=== PATIENT | male | born 1950 | race American Indian/Alaskan Native ===

== ENCOUNTER 2018-07-26 20:23 | Emergency (ER) | payer MEDICARE ==
--- NOTE | 2018-07-26 21:09 | Emergency Department Report ---
Blank Doc - Documentation Documentation: This is a 67-year-old male that presents with SOB. Denies any chest pain. HX of asthma. This initial assessment/diagnostic orders/clinical plan/treatment(s) is/are subject to change based on patient's health status, clinical progression and re- assessment by fellow clinical providers in the ED. Further treatment and workup at subsequent clinical providers discretion. Patient/guardians urged not to elope from the ED as their condition may be serious if not clinically assessed and managed. Initial orders include: 1- Patient sent to [facility] for further evaluation and treatment 2- CXR
--- NOTE | 2018-07-26 22:13 | XRay Report ---
PROCEDURE: Chest. TECHNIQUE: PA and lateral views. HISTORY: Shortness of breath. COMPARISONS: None. FINDINGS: The heart size is normal. There is mild tortuosity of the thoracic aorta. The lungs are clear and wel l expanded. There are no pleural effusions. The soft tissues and regional skeleton are unremarkable. IMPRESSION: No evidence of acute disease. This document is electronically signed by Gil Beyer MD., Jul 26 2018 10:11:56 PM ET
--- NOTE | 2018-07-26 22:38 | Emergency Department Report ---
ED Shortness of Breath HPI - General Chief Complaint: Adult Asthma Stated Complaint: ASTHMA Time Seen by Provider: 07/26/18 22:30 Source: patient Mode of arrival: Ambulatory Limitations: No Limitations - History of Present Illness Initial Comments: Patient is a 67-year-old male presents emergency room with complaints of asthma exacerbation 2 weeks. Patient states he's been having increasing wheezing and shortness of breath. Patient states he saw his primary care 5 days ago and was given a one time shot of Solu-Medrol and given a Z-Tin for 5 days. Patient states his symptoms did improve but he's having some difficulty in breathing. Patient states his shortness of breath spell with rest and medications and albuterol. Patient states his symptoms are worse with exertion. MD Complaint: shortness of breath -: Gradual Consistency: constant Improves With: rest, bronchodilators, medication Worsens With: exertion Known History Of: asthma Context: recent URI Associated Symptoms: cough - Related Data Home Medications Medication Instructions Recorded Confirmed Last Taken Aspirin [Ecotrin] 1 tab PO DAILY 03/22/13 08/19/13 08/18/13 Carvedilol [Coreg] 1 tab PO BID 03/22/13 08/19/13 08/18/13 Lisinopril [Zestril TAB] 1 tab PO QAM 03/22/13 08/19/13 08/18/13 Previous Rx's Medication Instructions Recorded Last Taken Type Azithromycin [Zithromax] 500 mg PO QDAY #3 tablet 08/19/13 Unknown Rx Cyclobenzaprine HCl [Flexeril 5 MG 5 mg PO TID #20 tab 12/08/15 Unknown Rx TAB] Ibuprofen [Motrin 600 MG tab] 600 mg PO Q8H PRN #30 tablet 12/08/15 Unknown Rx Doxycycline Hyclate [Doxycycline 100 mg PO Q12HR 10 Days #20 tab 07/27/18 Unknown Rx Hyclate TAB] Prednisone [predniSONE 10 mg 10 mg PO .TAPER #1 tab.ds.pk 07/27/18 Unknown Rx (6-Day Pack, 21 Tabs)] Allergies Allergy/AdvReac Type Severity Reaction Status Date / Time codeine Allergy Rash Verified 03/22/13 12:59 Penicillins Allergy Rash Verified 03/22/13 12:59 ED Review of Systems ROS: Stated complaint: ASTHMA Other details as noted in HPI Constitutional: denies: chills, fever Eyes: denies: eye pain, eye discharge, vision change ENT: denies: ear pain, throat pain Respiratory: cough, shortness of breath, wheezing Cardiovascular: denies: chest pain, palpitations Endocrine: no symptoms reported Gastrointestinal: denies: abdominal pain, nausea, diarrhea Genitourinary: denies: urgency, dysuria Musculoskeletal: denies: back pain, joint swelling, arthralgia Skin: denies: rash, lesions Neurological: denies: headache, weakness, paresthesias Psychiatric: denies: anxiety, depression Hematological/Lymphatic: denies: easy bleeding, easy bruising ED Past Medical Hx - Past Medical History Previous Medical History?: Yes Hx Hypertension: Yes Hx Congestive Heart Failure: Yes Hx Asthma: Yes Additional medical history: atrial fibrillation, prostate cancer - Surgical History Past Surgical History?: Yes Additional Surgical History: PROSTATE SURGERY - Family History Family history: no significant - Social History Smoking Status: Never Smoker Substance Use Type: None - Medications Home Medications: Home Medications Medication Instructions Recorded Confirmed Last Taken Type Aspirin [Ecotrin] 1 tab PO DAILY 03/22/13 08/19/13 08/18/13 History Carvedilol [Coreg] 1 tab PO BID 03/22/13 08/19/13 08/18/13 History Lisinopril [Zestril TAB] 1 tab PO QAM 03/22/13 08/19/13 08/18/13 History Azithromycin [Zithromax] 500 mg PO QDAY #3 tablet 08/19/13 Unknown Rx Cyclobenzaprine HCl [Flexeril 5 MG 5 mg PO TID #20 tab 12/08/15 Unknown Rx TAB] Ibuprofen [Motrin 600 MG tab] 600 mg PO Q8H PRN #30 tablet 12/08/15 Unknown Rx Doxycycline Hyclate [Doxycycline 100 mg PO Q12HR 10 Days #20 tab 07/27/18 Unknown Rx Hyclate TAB] Prednisone [predniSONE 10 mg 10 mg PO .TAPER #1 tab.ds.pk 07/27/18 Unknown Rx (6-Day Pack, 21 Tabs)] ED Physical Exam - General Limitations: No Limitations General appearance: alert, in no apparent distress - Head Head exam: Present: atraumatic, normocephalic - Eye Eye exam: Present: normal appearance - ENT ENT exam: Present: mucous membranes moist - Neck Neck exam: Present: normal inspection - Respiratory Respiratory exam: Present: normal lung sounds bilaterally. Absent: respiratory distress, wheezes, rales, rhonchi, chest wall tenderness, accessory muscle use, decreased breath sounds - Cardiovascular Cardiovascular Exam: Present: regular rate, normal rhythm. Absent: systolic murmur, diastolic murmur, rubs, gallop - GI/Abdominal GI/Abdominal exam: Present: soft, normal bowel sounds. Absent: distended, tenderness, guarding, rebound - Rectal Rectal exam: Present: deferred - Extremities Exam Extremities exam: Present: normal inspection - Back Exam Back exam: Present: normal inspection - Neurological Exam Neurological exam: Present: alert, oriented X3 - Psychiatric Psychiatric exam: Present: normal affect, normal mood - Skin Skin exam: Present: warm, dry, intact, normal color. Absent: rash ED Course Vital Signs 07/26/18 07/26/18 07/26/18 21:08 23:00 23:10 Temperature 97.8 F 98.3 F Pulse Rate 98 H 99 H 94 H Respiratory 18 20 19 Rate Blood Pressure 143/79 145/95 Blood Pressure 153/76 [Left] O2 Sat by Pulse 99 97 97 Oximetry 07/27/18 00:00 Temperature Pulse Rate 87 Respiratory 21 Rate Blood Pressure 143/96 Blood Pressure [Left] O2 Sat by Pulse 97 Oximetry - Reevaluation(s) Reevaluation #1: Patient appears to be stable. Patient does not have any visible shortness of breath or respiratory distress. Patient will be given antibiotics and steroids for asthma exacerbation. Patient will be discharged home. We will do a CBC prior to discharge. 07/26/18 22:49 Discussed all results with patient. I believe that the patient's white blood cell count is elevated due to steroids. Patient will be given Doxy and a prednisone taper. Patient needs to see a tool and equipment rental clerk and his primary care. Patient given discharge instructions. Patient voiced understanding of discharge instructions. 07/27/18 00:07 ED Medical Decision Making - Lab Data Result diagrams: 07/26/18 22:55 - Radiology Data Radiology results: report reviewed, image reviewed TECHNIQUE: PA and lateral views. HISTORY: Shortness of breath. COMPARISONS: None. FINDINGS: The heart size is normal. There is mild tortuosity of the thoracic aorta. The lungs are clear and well expanded. There are no pleural effusions. The soft tissues and regional skeleton are unremarkable. IMPRESSION: No evidence of acute disease. - Medical Decision Making Patient is a 67-year-old male presents to emergency room with worsening shortness of breath and wheezing. Patient not in respiratory distress and stable in entire time in the ER. Patient states he feels good. Patient given a prescription for doxycycline and steroids. Patient stable for discharge. Patient discharged home. Patient given discharge instructions. Patient's labs unremarkable except for mildly elevated white blood cell count. Also, believed to be elevated due to steroid use. Chest x-ray is negative. Exam is unremarkable. Prior to discharge, Patient denied symptoms. - Differential Diagnosis shortness of breath. Asthma exacerbation. URI. Critical care attestation.: If time is entered above; I have spent that time in minutes in the direct care of this critically ill patient, excluding procedure time. ED Disposition Clinical Impression: SOB (shortness of breath) URI (upper respiratory infection) Qualifiers: URI type: unspecified URI Qualified Code(s): J06.9 - Acute upper respiratory infection, unspecified Asthma Qualifiers: Asthma severity: mild Asthma persistence: intermittent Asthma complication type: uncomplicated Qualified Code(s): J45.20 - Mild intermittent asthma, uncomplicated Disposition: DC- TO HOME OR SELFCARE Is pt being admited?: No Does the pt Need Aspirin: No Condition: Stable Instructions: Asthma (ED), Upper Respiratory Infection (ED) Additional Instructions: Patient to follow-up with primary care in 2-3 days. Patient to take Tylenol or ibuprofen when necessary for pain. Patient to return to ER if condition worsens. Patient to take meds as directed. Patient to increase water. Patient to rest. Patient to continue all meds. Prescriptions: Doxycycline Hyclate [Doxycycline Hyclate TAB] 100 mg PO Q12HR 10 Days #20 tab Prednisone [predniSONE 10 mg (6-Day Pack, 21 Tabs)] 10 mg PO .TAPER #1 tab.ds.pk Referrals: SURINDER ALVAREZ MD [Primary Care Provider] - 2-3 Days Time of Disposition: 00:02
[2018-07-26 23:17] LABS: Hematocrit 41.7 % (35.5-45.6); Mean Corpuscular HGB Conc 34 % (32-34); Mean Corpuscular Volume 77 fl (84-94); Platelet Count 238 K/mm3 (140-440); Red Blood Count 5.44 M/mm3 (3.65-5.03); Red Cell Distribution Width 16.8 % (13.2-15.2)
[2018-07-27 00:53] VITALS: BP 143/96
== END 2018-07-27 00:20 | disposition home or self-care (01) ==
LOC: ED 20:23
DX: J45.20 Mild intermittent asthma, uncomplicated (principal)
CPT/HCPCS: 36415; 71046; 85027

== ENCOUNTER 2019-01-04 08:46 | Day surgery (SDC) | payer MEDICARE ==
[2019-01-04] MEDS ORDERED: BENZOCAINE 20% TOP SPRAY 0.5 ML UNIT DOSE MM NR (10:00)
[2019-01-04] MEDS ORDERED: SODIUM CHLORIDE 0.9% 500 ML 500 ML IV SCH (10:00)
[2019-01-04 10:05] LABS: Hematocrit 42.8 % (35.5-45.6); Hemoglobin 14.1 gm/dl (11.8-15.2); Mean Corpuscular HGB Conc 33 % (32-34); Mean Corpuscular Volume 78 fl (84-94); Platelet Count 229 K/mm3 (140-440); Red Blood Count 5.48 M/mm3 (3.65-5.03); Red Cell Distribution Width 16.9 % (13.2-15.2)
[2019-01-04 10:24] LABS: BUN/Creatinine Ratio 10; Blood Urea Nitrogen 11 mg/dL (9-20); Calcium 9.1 mg/dL (8.4-10.2); Hemolysis Index 29
--- NOTE | 2019-01-04 10:45 | Anesthesia Day of Surgery ---
Anesthesia Day of Surgery - Day of Surgery Patient Examined: Yes Patient H&P Reviewed: Yes Patient is NPO: Yes
--- NOTE | 2019-01-04 10:48 | Anesthesia Consultation ---
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
[2019-01-04] MEDS ORDERED: PROPOFOL 200 MG/20 ML VIAL IV ONE ×2 (11:17)
[2019-01-04 11:18] LABS: INR 1.12 (0.87-1.13); Partial Thromboplastin Time 29.3 Sec. (24.2-36.6)
[2019-01-04] MEDS ORDERED: LIDOCAINE MPF (2%) 20 MG/1 ML VIAL 5 ML ONE (11:30)
[2019-01-04 14:58] VITALS: BP 122/57
--- NOTE | 2019-01-04 19:50 | Post Anesthesia Evaluation ---
- Post Anesthesia Evaluation Patient Participated: Yes Airway Patent: Yes Stable Respiratory Function: Yes Nausea/Vomiting: No Temp > 96.8F: Yes Pain Manageable: Yes Adequeate Hydration: Yes Anesthesia Complications: No Block Receding Appropriately: Not Applicable Patient on Ventilator: No
== END 2019-01-04 14:45 | disposition home or self-care (01) ==
LOC: CATHLABREC 08:46 → EDSTATUS 11:00 → CATHLABREC 14:45
PROVIDERS: ATTEND Internal Medicine Cardiovascular Disease
DX: I63.9 Cerebral infarction, unspecified (principal); I34.0 Nonrheumatic mitral (valve) insufficiency; I70.0 Atherosclerosis of aorta; I42.0 Dilated cardiomyopathy; I13.0 Hypertensive heart and chronic kidney disease with heart failure and stage 1 through stage 4 chronic kidney disease, or unspecified chronic kidney disease; N18.3 Chronic kidney disease, stage 3 (moderate); I50.22 Chronic systolic (congestive) heart failure; I49.3 Ventricular premature depolarization; J45.909 Unspecified asthma, uncomplicated; K21.9 Gastro-esophageal reflux disease without esophagitis; E78.49 Other hyperlipidemia; E66.09 Other obesity due to excess calories; Z88.0 Allergy status to penicillin; Z88.5 Allergy status to narcotic agent; Z79.82 Long term (current) use of aspirin; Z79.899 Other long term (current) drug therapy; Z68.29 Body mass index [BMI] 29.0-29.9, adult
CPT/HCPCS: 36415; 80048; 85027; 85610; 85730; 93312; 93320; 93325; J2704; J7040

== ENCOUNTER 2019-10-27 22:50 | Observation (INO) | payer MEDICARE ==
[2019-10-27] MEDS ORDERED: levETIRAcetam 1000 MG/NS 0.75% 1,000 MG/100 ML BAG IV ONE (23:06)
--- NOTE | 2019-10-27 23:10 | Emergency Department Report ---
HPI - General Time Seen by Provider: 10/27/19 23:00 - HPI HPI: Room 19 The patient is a 68-year-old male present with a chief complaint of new onset seizure. called EMS after witnessing a generalized tonic-clonic seizure. Patient has not had a history of seizures in the past but has had a history of a CVA. Patient currently denies complaints stating he feels fine ED Past Medical Hx - Past Medical History Hx Hypertension: Yes (HX CHF-pt states improved) Hx Congestive Heart Failure: Yes Hx Asthma: Yes Additional medical history: atrial fibrillation, prostate cancer - Surgical History Additional Surgical History: PROSTATE SURGERY - Family History Family history: no significant - Social History Smoking Status: Never Smoker Substance Use Type: None - Medications Home Medications: Home Medications Medication Instructions Recorded Confirmed Last Taken Type Aspirin [Ecotrin] 1 tab PO DAILY 03/22/13 01/04/19 01/03/19 History 1 tab carvediloL [Coreg] 1 tab PO BID 03/22/13 01/04/19 01/03/19 History 1 tab lisinopriL [Zestril TAB] 1 tab PO QAM 03/22/13 08/19/13 01/03/19 History 1 tab Cyclobenzaprine HCl [Flexeril 5 MG 5 mg PO TID #20 tab 12/08/15 01/04/19 Unknown Rx TAB] Ibuprofen [Motrin 600 MG tab] 600 mg PO Q8H PRN #30 tablet 12/08/15 01/04/19 Unknown Rx Doxycycline Hyclate [Doxycycline 100 mg PO Q12HR 10 Days #20 tab 07/27/18 01/04/19 Unknown Rx Hyclate TAB] ED Review of Systems ROS: Stated complaint: SEIZURE Other details as noted in HPI Constitutional: no symptoms reported Respiratory: no symptoms reported Endocrine: no symptoms reported Physical Exam - Physical Exam Physical Exam: GENERAL: The patient is well-developed well-nourished male sitting on stretcher not appearing to be in acute distress. [] HEENT: Normocephalic. Atraumatic. Extraocular motions are intact. Patient has moist mucous membranes. Small abrasion to the left anterior aspect of the tongue. NECK: Supple. Trachea midline CHEST/LUNGS: Clear to auscultation. There is no respiratory distress noted. HEART/CARDIOVASCULAR: Regular. There is no tachycardia. There is no gallop rub or murmur. ABDOMEN: Abdomen is soft, nontender. Patient has normal bowel sounds. There is no abdominal distention. SKIN: There is no rash. There is no edema. There is no diaphoresis. NEURO: The patient is awake and alert. The patient is cooperative. Cranial nerves II through XII grossly intact. The patient has normal speech. GCS 15. Moves all extremities well. Patient able to hold either leg at 30 degrees for 5 count. NIHSS= 0 MUSCULOSKELETAL: There is no evidence of acute injury. ED Medical Decision Making - Lab Data Result diagrams: 10/27/19 23:09 10/27/19 23:09 Laboratory Tests 10/27/19 10/27/19 23:09 23:09 WBC 7.5 RBC 4.92 Hgb 13.1 Hct 39.5 MCV 80 L MCH 27 L MCHC 33 RDW 15.7 H Plt Count 247 Lymph % (Auto) 42.7 H Wayne % (Auto) 8.7 H Eos % (Auto) 3.5 Baso % (Auto) 1.3 Lymph # 3.2 Wayne # 0.7 Eos # 0.3 Baso # 0.1 Seg Neutrophils % 43.8 Seg Neutrophils # 3.3 Sodium 139 Potassium 4.7 Chloride 102.2 Carbon Dioxide 18 L Anion Gap 24 BUN 14 Creatinine 1.7 H Estimated GFR 48 BUN/Creatinine Ratio 8 Glucose 187 H Calcium 9.4 Magnesium 2.20 - EKG Data -: EKG Interpreted by [place] EKG shows normal: sinus rhythm Rate: normal - EKG Data When compared to previous EKG there are: previous EKG unavailable Interpretation: nonspecific ST-T wave jeanie - Radiology Data Radiology results: report reviewed (CT head), image reviewed (CT head) Findings [address] [address] Cat Scan Report Signed Patient: MAYNOR PRUITT JR MR#: [id number] 28 : 1950 Acct:[id number] Age/Sex: 68 / M ADM Date: 10/27/19 Loc: ED Attending Dr: Ordering Physician: ANA GIBSON MD Date of Service: 10/27/19 Procedure(s): CT h ead/brain wo con Accession Number(s): [id number] cc: ANA GIBSON MD CT head/brain wo con INDICATION / CLINICAL INFORMATION: 68 years Male; New onset seizure. TECHNIQUE: Routine CT head without contrast. All CT scans at this location are performed using CT dose reduction for ALARA by means of automated exposure control. COMPARISON: 08/22/2011 FINDINGS: BRAIN / INTRACRANIAL CONTENTS: Loss of romano/white differentiation is seen in the left parietal temporal region - subacute, moderately sized branch MCA infarct suspected. No signs of hemorrhagic transformation. Encephalomalacia seen in the inferior frontal gyral region on the left, as well as in the adjacent gangliocapsular region, laterally. [place] MCA infarct suspected. Otherwise, no acute hemorrhage, mass effect, midline shift, hydrocephalus, or acute, large territorial infarct. No significant atrophy. There are moderate to extensive, confluent areas of decreased attenuation in the white matter of the cerebral hemispheres, as well as the gangliocapsular regions. These are nonspecific findings and may be related to microangiopathy (hypertension, diabetes, atherosclerosis), given the patient's age. CRANIOCERVICAL JUNCTION: No significant abnormality. ORBITS: No significant abnormality of visualized orbits. SINUSES / MASTOIDS: No significant abnormality in the visualized paranasal sinuses or mastoid air cells. ADDITIONAL FINDINGS: Atherosclerotic disease is seen in the anterior circulation. IMPRESSION: 1. Subacute ischemic changes suggested in the left parietal temporal region. No signs of hemorrhagic transformation. Signer Name: Juan A Salmon MD, III Signed: 10/28/2019 12:05 AM Workstation Name: [id number] Transcribed By: HR Dictated By: Juan A Salmon MD Electronically Authenticated By: Juan A Salmon MD Signed Date/Time: 10/28/19 0005 DD/ 0001 TD/TT: - Differential Diagnosis New onset seizures, ICH, encephalomalacia, electrolyte imbalance Critical care attestation.: If time is entered above; I have spent that time in minutes in the direct care of this critically ill patient, excluding procedure time. ED Disposition Clinical Impression: Seizure, CVA (cerebral vascular accident) Disposition: - OP ADMIT IP TO THIS HOSP Is pt being admited?: Yes Does the pt Need Aspirin: Yes Condition: Fair Time of Disposition: 02:20 (Hospitalist paged (Dr Pineda))
[2019-10-27 23:42] LABS: Basophils # (Auto) 0.1 K/mm3 (0.0-0.1); Basophils % (Auto) 1.3 % (0.0-1.8); Eosinophils # (Auto) 0.3 K/mm3 (0.0-0.4); Eosinophils % (Auto) 3.5 % (0.0-4.3); Hematocrit 39.5 % (35.5-45.6); Hemoglobin 13.1 gm/dl (11.8-15.2); Lymphocytes # (Auto) 3.2 K/mm3 (1.2-5.4); Lymphocytes % (Auto) 42.7 % (13.4-35.0); Mean Corpuscular HGB Conc 33 % (32-34); Mean Corpuscular Volume 80 fl (84-94); Monocytes # (Auto) 0.7 K/mm3 (0.0-0.8); Monocytes % (Auto) 8.7 % (0.0-7.3); Platelet Count 247 K/mm3 (140-440); Red Blood Count 4.92 M/mm3 (3.65-5.03); Red Cell Distribution Width 15.7 % (13.2-15.2)
[2019-10-28 00:02] LABS: Calcium 9.4 mg/dL (8.4-10.2)
--- NOTE | 2019-10-28 00:10 | Cat Scan Report ---
CT head/brain wo con INDICATION / CLINICAL INFORMATION: 68 years Male; New onset seizure. TECHNIQUE: Routine CT head without contrast. All CT scans at this location are performed using CT dos e reduction for ALARA by means of automated exposure control. COMPARISON: 08/22/2011 FINDINGS: BRAIN / INTRACRANIAL CONTENTS: Loss of romano/white differentiation is seen in the left parietal tempor al region - subacute, moderately sized branch MCA infarct suspected. No signs of hemorrhagic transfor mation. Encephalomalacia seen in the inferior frontal gyral region on the left, as well as in the adjacent ga ngliocapsular region, laterally. Old branch MCA infarct suspected. Otherwise, no acute hemorrhage, mass effect, midline shift, hydrocephalus, or acute, large territori al infarct. No significant atrophy. There are moderate to extensive, confluent areas of decreased attenuation in the white matter of the cerebral hemispheres, as well as the gangliocapsular regions. These are nonspecific findings and may be related to microangiopathy (hypertension, diabetes, atherosclerosis), given the patient's age. CRANIOCERVICAL JUNCTION: No significant abnormality. ORBITS: No significant abnormality of visualized orbits. SINUSES / MASTOIDS: No significant abnormality in the visualized paranasal sinuses or mastoid air юлия ls. ADDITIONAL FINDINGS: Atherosclerotic disease is seen in the anterior circulation. IMPRESSION: 1. Subacute ischemic changes suggested in the left parietal temporal region. No signs of hemorrhagic transformation. Signer Name: Juan A Salmon MD, III Signed: 10/28/2019 12:05 AM Workstation Name: [id number]
[2019-10-28] MEDS ORDERED: ASPIRIN 325 MG TAB PO ONE (00:16)
[2019-10-28] MEDS ORDERED: LORazepam 2 MG/ML VIAL IV PRN (06:18)
[2019-10-28] MEDS ORDERED: ONDANSETRON 4 MG/2 ML INJ IV PRN (06:19)
--- NOTE | 2019-10-28 07:43 | History and Physical Report ---
History of Present Illness Date of examination: 10/28/19 Date of admission: 10/28/19 04:55 Chief complaint: seizure attack History of present illness: patient is a 68 year old male presenting with history of seizure attack characterized by tonic /clonic movement and witnesed by the . there was no history of fever or chills, No history of chest pain or shortness of breath and no history of any antecedent mental change before the seizure attack. Past History Past Medical History: atrial fib, heart failure, hypertension, hypothyroidism, stroke Past Surgical History: Other (PROSTATE CANCER) Social history: no significant social history Family history: no significant family history Medications and Allergies Allergies Allergy/AdvReac Type Severity Reaction Status Date / Time codeine Allergy Rash Verified 03/22/13 12:59 Penicillins Allergy Rash Verified 03/22/13 12:59 Home Medications Medication Instructions Recorded Confirmed Last Taken Type Aspirin [Ecotrin] 1 tab PO DAILY 03/22/13 01/04/19 01/03/19 History 1 tab carvediloL [Coreg] 1 tab PO BID 03/22/13 01/04/19 01/03/19 History 1 tab lisinopriL [Zestril TAB] 1 tab PO QAM 03/22/13 08/19/13 01/03/19 History 1 tab Cyclobenzaprine HCl [Flexeril 5 MG 5 mg PO TID #20 tab 12/08/15 01/04/19 Unknown Rx TAB] Ibuprofen [Motrin 600 MG tab] 600 mg PO Q8H PRN #30 tablet 12/08/15 01/04/19 Unknown Rx Doxycycline Hyclate [Doxycycline 100 mg PO Q12HR 10 Days #20 tab 07/27/18 01/04/19 Unknown Rx Hyclate TAB] Active Meds: Active Medications Aspirin (Aspirin) 325 mg PO QDAY CARITO Carvedilol (Coreg) 25 mg PO BID CARITO Cyclobenzaprine HCl (Flexeril) 5 mg PO TID CARITO Levetiracetam (Keppra) 750 mg PO BID CARITO Lisinopril (Zestril) 40 mg PO QAM CARITO Lorazepam (Ativan) 1 mg IV Q4H PRN PRN Reason: Seizures Ondansetron HCl (Zofran) 4 mg IV Q8H PRN PRN Reason: Nausea And Vomiting Pravastatin Sodium (Pravachol) 40 mg PO QHS [facility] Review of Systems Constitutional: weakness, no weight loss, no weight gain, no fever, no chills Eyes: bilateral: other (NO BILATERAL EYE SYMPTOM) Ears, nose, mouth and throat: no ear pain, no nasal congestion, no nasal discharge, no mouth pain, no dysphagia, no hoarseness, no sore throat, no swelling in mouth, no headache, no vertigo Cardiovascular: no chest pain, no syncope, no lightheadedness, no shortness of breath, no high blood pressure Respiratory: no cough, no excessive sputum, no shortness of breath, no dyspnea on exertion Gastrointestinal: no abdominal pain, no nausea, no vomiting, no constipation, no melena, no loss of appetite, no early satiety, no heartburn, no indigestion Genitourinary Male: no hematuria, no flank pain, no discharge, no incontinence Rectal: no pain, no itching Musculoskeletal: no neck pain, no low back pain, no shooting leg pain, no leg numbness/tingling, no morning stiffness, no muscle weakness, no muscle cramps, no myalgias Integumentary: no rash, no pruritis, no redness, no sores, no wounds, no jaundice, no boils, no lesions, no darkening of skin, no acne, no dryness, no striae, no hirsutism Neurological: seizures, convulsions, no paralysis, no weakness, no parathesias, no numbness, no tingling, no syncope, no tremors, no ataxia, no aphasia, no change in speech, no change in mentation, no confusion Psychiatric: no anxiety, no sleep disturbances, no hypersomnia, no change in appetite, no change in libido, no suicidal ideation, no anxiety attacks Endocrine: no excessive thirst, no polydipsia, no polyuria, no nocturia, no flushing, no palpatations Hematologic/Lymphatic: no easy bruising, no easy bleeding Exam - Constitutional Vitals: Temp Pulse Resp BP Pulse Ox 98.1 F 76 12 122/80 99 10/27/19 23:14 10/28/19 04:45 10/28/19 06:00 10/28/19 06:00 10/28/19 06:00 General appearance: Present: no acute distress - EENT Eyes: Present: PERRL, EOM intact ENT: hearing intact, clear oral mucosa, dentition normal - Neck Neck: Present: supple, normal ROM - Respiratory Respiratory effort: normal - Cardiovascular Rhythm: regular Heart Sounds: Present: S1 & S2. Absent: gallop, systolic murmur, diastolic murmur - Extremities Extremities: no ischemia, No edema Peripheral Pulses: within normal limits - Abdominal General gastrointestinal: Present: soft, non-tender, non-distended. Absent: tender, distended, rigid, hepatomegaly, splenomegaly Male genitourinary: Present: deferred - Rectal Rectal Exam: deferred - Integumentary Integumentary: Present: clear, warm, dry. Absent: jaundice - Musculoskeletal Musculoskeletal: strength equal bilaterally - Psychiatric Psychiatric: appropriate mood/affect HEART Score - HEART Score Age: > 65 Risk factors: > 3 risk factors or hx of atherosclerotic disease - Critical Actions Critical Actions: 4-6 pts:12-16.6% risk of adverse cardiac event. Should be admitted Results - Labs CBC & Chem 7: 10/27/19 23:09 10/27/19 23:09 Labs: Laboratory Last Values WBC 7.5 K/mm3 (4.5-11.0) 10/27/19 23:09 RBC 4.92 M/mm3 (3.65-5.03) 10/27/19 23:09 Hgb 13.1 gm/dl (11.8-15.2) 10/27/19 23:09 Hct 39.5 % (35.5-45.6) 10/27/19 23:09 MCV 80 fl (84-94) L 10/27/19 23:09 MCH 27 pg (28-32) L 10/27/19 23:09 MCHC 33 % (32-34) 10/27/19 23:09 RDW 15.7 % (13.2-15.2) H 10/27/19 23:09 Plt Count 247 K/mm3 (140-440) 10/27/19 23:09 Lymph % (Auto) 42.7 % (13.4-35.0) H 10/27/19 23:09 [place] % (Auto) 8.7 % (0.0-7.3) H 10/27/19 23:09 Eos % (Auto) 3.5 % (0.0-4.3) 10/27/19 23:09 Baso % (Auto) 1.3 % (0.0-1.8) 10/27/19 23:09 Lymph # 3.2 K/mm3 (1.2-5.4) 10/27/19 23:09 [place] # 0.7 K/mm3 (0.0-0.8) 10/27/19 23:09 Eos # 0.3 K/mm3 (0.0-0.4) 10/27/19 23:09 Baso # 0.1 K/mm3 (0.0-0.1) 10/27/19 23:09 Seg Neutrophils % 43.8 % (40.0-70.0) 10/27/19 23:09 Seg Neutrophils # 3.3 K/mm3 (1.8-7.7) 10/27/19 23:09 Sodium 139 mmol/L (137-145) 10/27/19 23:09 Potassium 4.7 mmol/L (3.6-5.0) 10/27/19 23:09 Chloride 102.2 mmol/L (98-107) 10/27/19 23:09 Carbon Dioxide 18 mmol/L (22-30) L 10/27/19 23:09 Anion Gap 24 mmol/L 10/27/19 23:09 BUN 14 mg/dL (9-20) 10/27/19 23:09 Creatinine 1.7 mg/dL (0.8-1.3) H 10/27/19 23:09 Estimated GFR 48 ml/min 10/27/19 23:09 BUN/Creatinine Ratio 8 % 10/27/19 23:09 Glucose 187 mg/dL (75-100) H 10/27/19 23:09 Calcium 9.4 mg/dL (8.4-10.2) 10/27/19 23:09 Magnesium 2.20 mg/dL (1.7-2.3) 10/27/19 23:09 Assessment and Plan - Patient Problems (1) LUANNE (acute kidney injury) Current Visit: Yes Status: Acute Plan to address problem: 1. I.V FLUID 2. NEPHROLOGY CONSULT (2) CVA (cerebral vascular accident) Current Visit: Yes Status: Acute Plan to address problem: 1. OBSERVATION 2. MRI BRAIN WITHOUT CONTRAST 3. CAROTID DOPPLER 4. 2 D ECHOCARDIOGRAM 5. NEUROLOGY CONSULT 6. NPO AND SPEECH THERAPY CONSULT 7. PO PRAVASTATIN 8 PO ASPIRIN (3) Seizure Current Visit: Yes Status: Acute Plan to address problem: 1. NEUROLOGY CONSULT 2. I.V ATIVAN PRN SEIZURES 3. PO KEPPRA
[2019-10-28] MEDS ORDERED: CYCLOBENZAPRINE 10 MG TAB PO SCH (08:00)
[2019-10-28] MEDS ORDERED: NON-FORMULARY EACH (Cyclobenzaprine Hcl [Flexeril 5 Mg Tab] 5 MG) PO SCH (08:00)
[2019-10-28] MEDS ORDERED: SODIUM CHLORIDE 0.9% 1000 ML 1,000 ML IV SCH (08:15)
--- NOTE | 2019-10-28 09:02 | Consultation ---
History of Present Illness - Reason for Consult Consult date: 10/28/19 acute renal failure - History of Present Illness Mr. 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 She reports that yesterday, patient was in usual state of health. However, she states that last night, she witnessed seizure activity - described generalized tonic-clonic seizure. EMS was called and patient was transported to the ED. reports that patient was recently admitted to [place] on September 06 for similar history. reports that he was hospitalized for 2-3 days. Work up was reportedly unremarkable. He was discharged to home on anti epileptic medications Past History Past Medical History: atrial fib, heart failure, hypertension, hypothyroidism, stroke Past Surgical History: Other (PROSTATE CANCER) Social history: no significant social history Family history: no significant family history Medications and Allergies Allergies Allergy/AdvReac Type Severity Reaction Status Date / Time codeine Allergy Rash Verified 03/22/13 12:59 Penicillins Allergy Rash Verified 03/22/13 12:59 Home Medications Medication Instructions Recorded Confirmed Last Taken Type Aspirin [Ecotrin] 1 tab PO DAILY 03/22/13 01/04/19 01/03/19 History 1 tab carvediloL [Coreg] 1 tab PO BID 03/22/13 01/04/19 01/03/19 History 1 tab lisinopriL [Zestril TAB] 1 tab PO QAM 03/22/13 08/19/13 01/03/19 History 1 tab Cyclobenzaprine HCl [Flexeril 5 MG 5 mg PO TID #20 tab 12/08/15 01/04/19 Unknown Rx TAB] Ibuprofen [Motrin 600 MG tab] 600 mg PO Q8H PRN #30 tablet 12/08/15 01/04/19 Unknown Rx Doxycycline Hyclate [Doxycycline 100 mg PO Q12HR 10 Days #20 tab 07/27/1801/04 Unknown Rx Hyclate TAB] Active Meds: Active Medications Aspirin (Aspirin) 325 mg PO QDAY CARITO Carvedilol (Coreg) 25 mg PO BID CARITO Cyclobenzaprine HCl (Flexeril) 5 mg PO TID CARITO Sodium Chloride (Nacl 0.9% 1000 Ml) 1,000 mls @ 75 mls/hr IV DIRECT CARITO Levetiracetam (Keppra) 750 mg PO BID CARITO Lorazepam (Ativan) 1 mg IV Q4H PRN PRN Reason: Seizures Ondansetron HCl (Zofran) 4 mg IV Q8H PRN PRN Reason: Nausea And Vomiting Pravastatin Sodium (Pravachol) 40 mg PO QHS CARITO Review of Systems All systems: negative Neurological: other (expressive aphasia) Exam - Vital Signs Vital signs: Vital Signs Pulse Resp 105 H 19 10/27/19 23:08 10/27/19 23:08 - General Appearance General appearance: well-developed, well-nourished EENT: ATNC Respiratory: Clear to Ascultation Heart: regular, S1S2 Gastrointestinal: Present: normal. Absent: tenderness, distended Integumentary: no rash, warm and dry Neurologic: other (expressive aphasia - answers "[place]" to majority of questions) Psychiatric: mood/affect appropriate, cooperative Results - Lab Results 10/27/19 23:09 10/27/19 23:09 Most recent lab results Calcium 9.4 mg/dL (8.4-10.2) 10/27/19 23:09 Magnesium 2.20 mg/dL (1.7-2.3) 10/27/19 23:09 Assessment and Plan Impression: * Nonoliguric LUANNE secondary to unclear etiology - consider prerenal azotemia vs ATN related to rhabdo vs NSAID induced nephopathy * Seizure disorder * CVA with expressive aphasia * Hypertension * Atrial fibrillation * Metabolic acidosis Plan: * No acute indication for renal replacement therapy at this time * Continue gentle IVF * Will order CK * Hold ACEi for now * Obtain urine studies - UA, urine lytes, urine eos * Obtain renal ultrasound to r/o obstructive uropathy * Avoid potential nephrotoxins * Dose medications for renal function * Plan of care discussed with patient's via phone
[2019-10-28] MEDS ORDERED: LISINOPRIL 40 MG TAB PO SCH (10:00)
[2019-10-28] MEDS: carvediloL 25 MG TAB PO SCH ×2 (10:21→22:08)
[2019-10-28] MEDS: ASPIRIN 325 MG TAB PO SCH (10:21)
[2019-10-28] MEDS: levETIRAcetam 500 MG/5 ML ORAL LIQD PO SCH ×2 (10:21→22:08)
--- NOTE | 2019-10-28 19:49 | Ultrasound Report ---
ULTRASOUND RENAL INDICATION: LUANNE. COMPARISON: No relevant prior imaging study available. FINDINGS: RIGHT KIDNEY: Size: 11.5 cm. Echogenicity: Normal. Cortical thickness: Normal. Stones: None. Hydronephrosis: None. Cyst or mass: There is a 4 mm hyperechoic structure in the right upper pole. This may represent some parenchymal calcification or could represent a tiny angiomyolipoma. There is a 9 mm cyst in the upper pole. LEFT KIDNEY: Size: 11.3 cm. Echogenicity: Normal. Cortical thickness: Normal. Stones: None. Hydronephrosis: None. Cyst or mass: There is a 5 mm echogenic structure in the mid left kidney. This could represent calcif ication possibly representing a small stone. This may represent small angiomyolipoma.. Urinary Bladder: No significant abnormality. Free Fluid: None. Additional Findings: None. IMPRESSION 1. No acute sonographic abnormality of the kidneys. Signer Name: Deandre Tom MD Signed: 10/28/2019 7:44 PM Workstation Name: [id number]
[2019-10-28] MEDS: PRAVASTATIN 40 MG TAB PO SCH (22:08)
[2019-10-29 06:03] LABS: BUN/Creatinine Ratio 10; Blood Urea Nitrogen 12 mg/dL (9-20); Hemolysis Index 22
[2019-10-29 09:28] LABS: Bilirubin,Urine NEG (Negative); Blood,Urine SM (Negative); Color,Urine Yellow (Yellow); Mucus,Urine FEW /HPF; Protein,Urine <15 mg/dL mg/dL (Negative); Urobilinogen,Urine < 2.0 mg/dL (<2.0)
[2019-10-29 09:30] LABS: Creatinine,Urine 193.5 mg/dL (0.1-20.0)
[2019-10-29] MEDS: carvediloL 25 MG TAB PO SCH (09:45)
[2019-10-29] MEDS: ASPIRIN 325 MG TAB PO SCH (09:45)
[2019-10-29] MEDS: levETIRAcetam 500 MG/5 ML ORAL LIQD PO SCH ×2 (09:45→22:11)
--- NOTE | 2019-10-29 10:06 | Progress Note ---
Assessment and Plan Impression: * Nonoliguric LUANNE secondary prerenal azotemia vs ATN related to rhabdo vs NSAID induced nephopathy * Seizure disorder * CVA with expressive aphasia * Hypertension * Atrial fibrillation * Metabolic acidosis Plan: * No acute indication for renal replacement therapy at this time * Creatinine has improved to 1.2 from 1.7, lytes and urine stable * Reviewed urine studies * Continue gentle IVF as tolerated, wean if able to tolerate PO intake * CK mildly elevated, less likely rhabdo-associated LUANNE * Contineu to hold ACEi for now * Reviewed renal ultrasound to r/o obstructive uropathy * Avoid potential nephrotoxins * Dose medications for renal function * Will discuss plan of care with patient's via phone prn Subjective Date of service: 10/29/19 Interval history: No major issues noted, patient in good spirits this AM Objective - Exam Narrative Exam: General appearance: well-developed, well-nourished EENT: ATNC Respiratory: Clear to Ascultation Heart: regular, S1S2 Gastrointestinal: Present: normal. Absent: tenderness, distended Integumentary: no rash, warm and dry Neurologic: expressive aphasia noted- answers "[place]" to majority of questions, moves spontaneously, comprehends basic commands Psychiatric: mood/affect appropriate, cooperative - Vital Signs Vital signs: Vital Signs - 12hr 10/28/19 10/28/19 10/29/19 22:08 23:06 02:00 Temperature 98.4 F Pulse Rate 74 73 62 Respiratory 18 Rate Blood Pressure 132/84 150/79 O2 Sat by Pulse 98 Oximetry 10/29/19 10/29/19 10/29/19 04:12 07:59 09:45 Temperature 97.5 F L 98.5 F Pulse Rate 76 71 76 Respiratory 16 20 Rate Blood Pressure 131/87 138/87 128/77 O2 Sat by Pulse 100 99 Oximetry - Lab 10/27/19 23:09 10/29/19 05:09 Most recent lab results Calcium 9.0 mg/dL (8.4-10.2) 10/29/19 05:09 Magnesium 2.20 mg/dL (1.7-2.3) 10/27/19 23:09 Urine Creatinine 193.5 mg/dL (0.1-20.0) H 10/29/19 09:12 Urine Sodium 116 mmol/L 10/29/19 09:12 Medications & Allergies - Medications Allergies/Adverse Reactions: Allergies codeine Allergy (Verified 03/22/13 12:59) Rash Penicillins Allergy (Verified 03/22/13 12:59) Rash Home Medications: Home Medications Medication Instructions Recorded Confirmed Last Taken Type Aspirin [Ecotrin] 1 tab PO DAILY 03/22/13 01/04/19 01/03/19 History 1 tab carvediloL [Coreg] 1 tab PO BID 03/22/13 01/04/19 01/03/19 History 1 tab lisinopriL [Zestril TAB] 1 tab PO QAM 03/22/13 08/19/13 01/03/19 History 1 tab Cyclobenzaprine HCl [Flexeril 5 MG 5 mg PO TID #20 tab 12/08/15 01/04/19 Unknown Rx TAB] Ibuprofen [Motrin 600 MG tab] 600 mg PO Q8H PRN #30 tablet 12/08/15 01/04/19 Unknown Rx Doxycycline Hyclate [Doxycycline 100 mg PO Q12HR 10 Days #20 tab 07/27/18 01/04/19 Unknown Rx Hyclate TAB] Active Medications: Generic Name Dose Route Start Last Admin Trade Name Freq PRN Reason Stop Dose Admin Aspirin 325 mg 10/28/19 10:00 10/29/19 09:45 Aspirin PO 325 mg QDAY CARITO Administration Carvedilol 25 mg 10/28/19 10:00 10/29/19 09:45 Coreg PO 25 mg BID CARITO Administration Sodium Chloride 1,000 mls @ 75 mls/hr 10/28/19 08:15 Nacl 0.9% 1000 Ml IV DIRECT CARITO Levetiracetam 750 mg 10/28/19 10:00 10/29/19 09:45 Keppra PO 750 mg BID CARITO Administration Lorazepam 1 mg 10/28/19 06:18 Ativan IV Q4H PRN Seizures Ondansetron HCl 4 mg 10/28/19 06:19 Zofran IV Q8H PRN Nausea And Vomiting Pravastatin Sodium 40 mg 10/28/19 22:00 10/28/19 22:08 Pravachol PO 40 mg QHS CARITO Administration
--- NOTE | 2019-10-29 17:14 | Progress Note ---
Assessment and Plan Assessment and plan: 68 year old male with a history of CVA (2019), seizure disorder characterized by tonic clonic movement and witnessed by the . There was no history of fever or chills. No history of chest pain or shortness of breath and no history of any antecedent mental change before the seizure attack. 10/28. Patient seen and examined at bedside this morning. Patient is occasionally dysphasic. Neurology evaluation still awaited. Echocardiogram shows severely low EF. I discussed with -Melissa on [phone] at 5:30pm. As per spouse, his home medications as follows -lisinopril 40 mg daily, aspirin 325 mg daily, Coreg 6.25 mg twice a day, Aldactone 25 mg daily, Lipitor 40 mg daily, Keppra 1000 mg twice daily, Lasix 20 mg daily. - Patient Problems (1) CVA (cerebral vascular accident) Current Visit: Yes Status: Acute Plan to address problem: CT head performed in the ER showed left sided parieto-temporal lobe infarct. Patient is on aspirin 325 mg daily at home. May need to add plavix 75mg daily - will defer to neurologist. TTE performed showed no PFO, shunt or thrombus Ultrasound Doppler carotids-results pending Needs speech and swallow evaluation and PT/OT Neurology on board. (2) Seizure Current Visit: Yes Status: Acute Plan to address problem: Patient is on Keppra 1000 mg twice daily at home. Neurology on board EEG pending May need MRI brain w wo contrast. (3) Hypertension Current Visit: Yes Status: Acute Plan to address problem: Maintain permissive hypertension for now (4) Chronic systolic heart failure Current Visit: Yes Status: Acute Plan to address problem: Echocardiogram showed EF 15 to 20% at best. Patient is on ALICIA inhibitor, Coreg, Aldactone and furosemide at home. Resume Aldactone and Coreg for now. Hold ALICIA inhibitor and Lasix today. Resume tomorrow if renal function stable Follow-up with [facility] radio operator in the office (5) DVT prophylaxis Current Visit: Yes Status: Acute Plan to address problem: Lovenox daily. History Interval history: See assessment and plan Hospitalist Physical - Constitutional Vitals: Temp Pulse Resp BP Pulse Ox 98.4 F 63 18 144/91 100 10/29/19 15:53 10/29/19 15:53 10/29/19 15:53 10/29/19 15:53 10/29/19 15:53 General appearance: Present: no acute distress - EENT Eyes: Present: PERRL - Neck Neck: Present: supple, normal ROM - Respiratory Respiratory: bilateral: CTA - Cardiovascular Rhythm: regular Heart Sounds: Present: S1 & S2 - Extremities Extremities: No edema - Abdominal General gastrointestinal: soft, non-tender, non-distended, normal bowel sounds - Psychiatric Psychiatric: appropriate mood/affect - Neurologic Neurologic: other (Slight dysphasia. Not gross focal motor or sensory deficits on exam) HEART Score - HEART Score Age: > 65 Risk factors: > 3 risk factors or hx of atherosclerotic disease - Critical Actions Critical Actions: 4-6 pts:12-16.6% risk of adverse cardiac event. Should be admitted Results - Labs CBC & Chem 7: 10/27/19 23:09 10/29/19 05:09 Labs: Laboratory Last Values WBC 7.5 K/mm3 (4.5-11.0) 10/27/19 23:09 RBC 4.92 M/mm3 (3.65-5.03) 10/27/19 23:09 Hgb 13.1 gm/dl (11.8-15.2) 10/27/19 23:09 Hct 39.5 % (35.5-45.6) 10/27/19 23:09 MCV 80 fl (84-94) L 10/27/19 23:09 MCH 27 pg (28-32) L 10/27/19 23:09 MCHC 33 % (32-34) 10/27/19 23:09 RDW 15.7 % (13.2-15.2) H 10/27/19 23:09 Plt Count 247 K/mm3 (140-440) 10/27/19 23:09 Lymph % (Auto) 42.7 % (13.4-35.0) H 10/27/19 23:09 [place] % (Auto) 8.7 % (0.0-7.3) H 10/27/19 23:09 Eos % (Auto) 3.5 % (0.0-4.3) 10/27/19 23:09 Baso % (Auto) 1.3 % (0.0-1.8) 10/27/19 23:09 Lymph # 3.2 K/mm3 (1.2-5.4) 10/27/19 23:09 [place] # 0.7 K/mm3 (0.0-0.8) 10/27/19 23:09 Eos # 0.3 K/mm3 (0.0-0.4) 10/27/19 23:09 Baso # 0.1 K/mm3 (0.0-0.1) 10/27/19 23:09 Seg Neutrophils % 43.8 % (40.0-70.0) 10/27/19 23:09 Seg Neutrophils # 3.3 K/mm3 (1.8-7.7) 10/27/19 23:09 Sodium 140 mmol/L (137-145) 10/29/19 05:09 Potassium 4.8 mmol/L (3.6-5.0) 10/29/19 05:09 Chloride 108.3 mmol/L (98-107) H 10/29/19 05:09 Carbon Dioxide 23 mmol/L (22-30) 10/29/19 05:09 Anion Gap 14 mmol/L 10/29/19 05:09 BUN 12 mg/dL (9-20) 10/29/19 05:09 Creatinine 1.2 mg/dL (0.8-1.3) 10/29/19 05:09 Estimated GFR > 60 ml/min 10/29/19 05:09 BUN/Creatinine Ratio 10 % 10/29/19 05:09 Glucose 92 mg/dL (75-100) 10/29/19 05:09 Calcium 9.0 mg/dL (8.4-10.2) 10/29/19 05:09 Magnesium 2.20 mg/dL (1.7-2.3) 10/27/19 23:09 Total Creatine Kinase 1105 units/L (55-170) H 10/29/19 05:09 Urine Color Yellow (Yellow) 10/29/19 09:12 Urine Turbidity Clear (Clear) 10/29/19 09:12 Urine pH 5.0 (5.0-7.0) 10/29/19 09:12 Ur Specific [place] 1.015 (1.003-1.030) 10/29/19 09:12 Urine Protein <15 mg/dl mg/dL (Negative) 10/29/19 09:12 Urine Glucose (UA) Neg mg/dL (Negative) 10/29/19 09:12 Urine Ketones Neg mg/dL (Negative) 10/29/19 09:12 Urine Blood Sm (Negative) 10/29/19 09:12 Urine Nitrite Neg (Negative) 10/29/19 09:12 Urine Bilirubin Neg (Negative) 10/29/19 09:12 Urine Urobilinogen < 2.0 mg/dL (<2.0) 10/29/19 09:12 Ur Leukocyte Esterase Neg (Negative) 10/29/19 09:12 Urine WBC (Auto) 2.0 /HPF (0.0-6.0) 10/29/19 09:12 Urine RBC (Auto) 3.0 /HPF (0.0-6.0) 10/29/19 09:12 U Epithel Cells (Auto) < 1.0 /HPF (0-13.0) 10/29/19 09:12 Urine Mucus Few /HPF 10/29/19 09:12 Urine Eosinophils None seen (None Seen) 10/29/19 09:12 Urine Creatinine 193.5 mg/dL (0.1-20.0) H 10/29/19 09:12 Urine Sodium 116 mmol/L 10/29/19 09:12 - Diagnostic Impressions Diagnostic Impressions: Echocardiogram 10/28/19 06:13 Transthoracic Echocardiogram Indication: CVA BP: 122/80 HR: 72 Conclusions *The left ventricular chamber size is severely dilated. *Global left ventricular systolic function is severely decreased. *The estimated ejection fraction is less than 15-20%. *Mild concentric left ventricular hypertrophy is observed. *There is mild to moderate mitral regurgitation. *There is trace of aortic regurgitation. *There is trace tricuspid regurgitation. *A patent foramen ovale is not demonstrated by agitated saline contrast. Findings Left Ventricle: The left ventricular chamber size is severely dilated. Mild concentric left ventricular hypertrophy is observed. Global left ventricular systolic function is severely decreased. The estimated ejection fraction is 15-20%. Left Atrium: The left atrium is mild to moderately dilated. Right Ventricle: The right ventricular cavity size is normal. Right Atrium: The right atrial cavity size is normal. A patent foramen ovale is not demonstrated by agitated saline contrast. Aortic Valve: The aortic valve is trileaflet. The aortic valve leaflets are mildly thickened. There is trace of aortic regurgitation. There is no evidence of aortic stenosis. Mitral Valve: The mitral valve leaflets are mildly thickened. There is mild to moderate mitral regurgitation. There is no evidence of mitral stenosis. Tricuspid Valve: There is trace tricuspid regurgitation. No pulmonary hypertension is noted. Pulmonic Valve: There is trace pulmonic regurgitation. Pericardium: There is no pericardial effusion. Aorta: There is no dilatation of the aortic root. Venous: The inferior vena cava appears normal in size. Contrast: Intravenous agitated saline contrast was used to assess intracardiac shunting. Measurements Chambers 2D Name Value Normal Range IVSd (2D) 1.09 cm (0.6 - 1.1) LVPWd (2D) 1.1 cm (0.6 - 1.1) LVIDd (2D) 7.04 cm (3.7 - 5.6) LVIDs (2D) 6.36 cm (2 - 3.8) LV FS (2D) 9.72 % - EF Teichholz (2D) 20.67 % - Ao root diameter (2D) 2.8 cm (2 - 3.7) Volumes/Mass Name Value Normal Range LA ESV SP 4CH (A/L) 76.66 ml - LA ESV SP 2CH (A/L) 93.24 ml - LA ESV BP (A/L) 86.13 ml - LA ESV SP 4CH (MOD) 67.07 ml - LA ESV SP 2CH (MOD) 91.51 ml - LA ESV BP (MOD) 79.61 ml - LA ESV BP (MOD) index 36.85 ml/m2 - LV EDV SP 4CH (MOD) 282.38 ml - LV ESV SP 4CH (MOD) 270.07 ml - EF SP 4CH (MOD) 4.36 % - LV EDV SP 2CH (MOD) 203.62 ml - LV ESV SP 2CH (MOD) 150.97 ml - EF SP 2CH (MOD) 25.86 % - LV EDV BP 251.07 ml - LV ESV BP 216.31 ml - BP EF (MOD) 13.84 % - Diastolic/Systolic Function Name Value Normal Range MV E-wave Vmax 0.71 m/sec - MV deceleration time 26.67 msec - MV A-wave Vmax 1.03 m/sec - MV E:A ratio 0.69 ratio - Aortic Valve Name Value Normal Range AV Vmax 1.08 m/sec - AV VTI 22.12 cm - AV peak gradient 4.7 mmHg - AV mean gradient 2.53 mmHg - LVOT diameter 2.15 cm - LVOT Vmax 0.91 m/sec - LVOT VTI 14.77 cm - LVOT peak gradient 3.32 mmHg - LVOT mean gradient 2.01 mmHg - SV LVOT 53.72 ml - ZOEY (continuity Vmax) 3.06 cm2 - ZOEY (continuity VTI) 2.43 cm2 - AR PHT 473.27 msec - AR peak gradient 42.8 mmHg - Tricuspid Valve Name Value Normal Range TR Vmax 1.74 m/sec - TR peak gradient 12.06 mmHg - Pulmonic Valve/Qp:Qs Name Value Normal Range PV Vmax 0.86 m/sec - PV peak gradient 2.98 mmHg - PV acceleration time 106.57 msec - Lott/IV: Voiding Method Toilet IV Catheter Type [Left Wrist] INT / Saline Lock Active Medications - Current Medications Current Medications: Generic Name Dose Route Start Last Admin Trade Name Freq PRN Reason Stop Dose Admin Aspirin 325 mg 10/28/19 10:00 10/29/19 09:45 Aspirin PO 325 mg QDAY CARITO Administration Carvedilol 25 mg 10/28/19 10:00 10/29/19 09:45 Coreg PO 25 mg BID CARITO Administration Sodium Chloride 1,000 mls @ 75 mls/hr 10/28/19 08:15 Nacl 0.9% 1000 Ml IV DIRECT CARITO Levetiracetam 750 mg 10/28/19 10:00 10/29/19 09:45 Keppra PO 750 mg BID CARITO Administration Lorazepam 1 mg 10/28/19 06:18 Ativan IV Q4H PRN Seizures Ondansetron HCl 4 mg 10/28/19 06:19 Zofran IV Q8H PRN Nausea And Vomiting Pravastatin Sodium 40 mg 10/28/19 22:00 10/28/19 22:08 Pravachol PO 40 mg QHS CARITO Administration
--- NOTE | 2019-10-29 17:28 | Vascular Lab Report ---
Bilateral Carotid Doppler Ultrasound INDICATION : CVA TECHNIQUE: Grayscale and color Doppler imaging performed through the neck. COMPARISON: None FINDINGS: Right: There is no significant atherosclerotic disease. Peak systolic velocity in the CCA is 70 cm/ s. Peak systolic velocity in the proximal ICA is 60 cm/s with end-diastolic velocity of 21 cm/s. ICA to CCA ratio is less than 2. There is antegrade flow in the ECA and the vertebral artery. Left: There is no significant atherosclerotic disease. Peak systolic velocity in the CCA is 56 cm/s. Peak systolic velocity in the proximal ICA is 68 cm/s with end-diastolic velocity of 18 cm/s. ICA to CCA ratio is less than 2. There is antegrade flow in the ECA and the vertebral artery. IMPRESSION: No hemodynamically significant stenosis by NASCET criteria. Signer Name: Brad Murray MD Signed: 10/29/2019 5:24 PM Workstation Name: [id number]
--- NOTE | 2019-10-29 17:33 | Consultation ---
History of Present Illness Chief complaint: seizure History of present illness: This is the Tele Neurology consultation. patient is a 68 year old male presenting with history of seizure attack characterized by tonic /clonic movement and witnesed by the . there was no history of fever or chills, No history of chest pain or shortness of breath and no history of any antecedent mental change before the seizure attack. Past History Past Medical History: atrial fib, heart failure, hypertension, hypothyroidism, stroke Past Surgical History: Other (PROSTATE CANCER) Social history: no significant social history Family history: no significant family history Medications and Allergies Allergies Allergy/AdvReac Type Severity Reaction Status Date / Time codeine Allergy Rash Verified 03/22/13 12:59 Penicillins Allergy Rash Verified 03/22/13 12:59 Home Medications Medication Instructions Recorded Confirmed Last Taken Type Aspirin [Ecotrin] 1 tab PO DAILY 03/22/13 01/04/19 01/03/19 History 1 tab carvediloL [Coreg] 1 tab PO BID 03/22/13 01/04/19 01/03/19 History 1 tab lisinopriL [Zestril TAB] 1 tab PO QAM 03/22/13 08/19/13 01/03/19 History 1 tab Cyclobenzaprine HCl [Flexeril 5 MG 5 mg PO TID #20 tab 12/08/15 01/04/19 Unknown Rx TAB] Ibuprofen [Motrin 600 MG tab] 600 mg PO Q8H PRN #30 tablet 12/08/15 01/04/19 Unknown Rx Doxycycline Hyclate [Doxycycline 100 mg PO Q12HR 10 Days #20 tab 07/27/18 01/04/19 Unknown Rx Hyclate TAB] Active Meds: Active Medications Aspirin (Aspirin) 325 mg PO QDAY [facility] Carvedilol (Coreg) 25 mg PO BID CARITO Cyclobenzaprine HCl (Flexeril) 5 mg PO TID CARITO Levetiracetam (Keppra) 750 mg PO BID CARITO Lisinopril (Zestril) 40 mg PO QAM [facility] Lorazepam (Ativan) 1 mg IV Q4H PRN PRN Reason: Seizures Ondansetron HCl (Zofran) 4 mg IV Q8H PRN PRN Reason: Nausea And Vomiting Pravastatin Sodium (Pravachol) 40 mg PO QHS [facility] Review of Systems Constitutional: weakness, no weight loss, no weight gain, no fever, no chills Eyes: bilateral: other (NO BILATERAL EYE SYMPTOM) Ears, nose, mouth and throat: no ear pain, no nasal congestion, no nasal discharge, no mouth pain, no dysphagia, no hoarseness, no sore throat, no swe lling in mouth, no headache, no vertigo Cardiovascular: no chest pain, no syncope, no lightheadedness, no shortness of breath, no high blood pressure Respiratory: no cough, no excessive sputum, no shortness of breath, no dyspnea on exertion Gastrointestinal: no abdominal pain, no nausea, no vomiting, no constipation, no melena, no loss of appetite, no early satiety, no heartburn, no indigestion Genitourinary Male: no hematuria, no flank pain, no discharge, no incontinence Rectal: no pain, no itching Musculoskeletal: no neck pain, no low back pain, no shooting leg pain, no leg numbness/tingling, no morning stiffness, no muscle weakness, no muscle cramps, no myalgias Integumentary: no rash, no pruritis, no redness, no sores, no wounds, no jaundice, no boils, no lesions, no darkening of skin, no acne, no dryness, no striae, no hirsutism Neurological: seizures, convulsions, no paralysis, no weakness, no parathesias, no numbness, no tingling, no syncope, no tremors, no ataxia, no aphasia, no change in speech, no change in mentation, no confusion Psychiatric: no anxiety, no sleep disturbances, no hypersomnia, no change in appetite, no change in libido, no suicidal ideation, no anxiety attacks Endocrine: no excessive thirst, no polydipsia, no polyuria, no nocturia, no flushing, no palpatations Hematologic/Lymphatic: no easy bruising, no easy bleeding Past History Past Medical History: atrial fib, heart failure, hypertension, hypothyroidism, stroke Past Surgical History: Other (PROSTATE CANCER) Social history: no significant social history Family history: no significant family history Medications and Allergies Allergies Allergy/AdvReac Type Severity Reaction Status Date / Time codeine Allergy Rash Verified 03/22/13 12:59 Penicillins Allergy Rash Verified 03/22/13 12:59 Home Medications Medication Instructions Recorded Confirmed Last Taken Type Aspirin [Ecotrin] 1 tab PO DAILY 12/26/13 10/10/19 10/09/19 History 1 tab carvediloL [Coreg] 1 tab PO BID 03/22/13 01/04/19 01/03/19 History 1 tab lisinopriL [Zestril TAB] 1 tab PO QAM 03/22/13 08/19/13 01/03/19 History 1 tab Cyclobenzaprine HCl [Flexeril 5 MG 5 mg PO TID #20 tab 12/08/15 01/04/19 Unknown Rx TAB] Ibuprofen [Motrin 600 MG tab] 600 mg PO Q8H PRN #30 tablet 12/08/15 01/04/19 Unknown Rx Doxycycline Hyclate [Doxycycline 100 mg PO Q12HR 10 Days #20 tab 07/27/18 01/04/19 Unknown Rx Hyclate TAB] Active Meds: Active Medications Aspirin (Aspirin) 325 mg PO QDAY [facility] Last Admin: 10/29/19 09:45 Dose: 325 mg Documented by: Carvedilol (Coreg) 25 mg PO BID [facility] Last Admin: 10/29/19 09:45 Dose: 25 mg Documented by: Sodium Chloride (Nacl 0.9% 1000 Ml) 1,000 mls @ 75 mls/hr IV DIRECT [facility] Levetiracetam (Keppra) 750 mg PO BID [facility] Last Admin: 10/29/19 09:45 Dose: 750 mg Documented by: Lorazepam (Ativan) 1 mg IV Q4H PRN PRN Reason: Seizures Ondansetron HCl (Zofran) 4 mg IV Q8H PRN PRN Reason: Nausea And Vomiting Pravastatin Sodium (Pravachol) 40 mg PO QHS [facility] Last Admin: 10/28/19 22:08 Dose: 40 mg Documented by: Physical Examination - Vital Signs Vital Signs: Vital Signs Pulse Resp 105 H 19 10/27/19 23:08 10/27/19 23:08 - Physical Exam Narrative exam: Neurology Examination: alert awake. impaired naming and repetition. follows commands occasionally. CN- eomi- possible right NLF delayed movement. M- no arm drift. Laboratory Results - last 72 hr 10/27/19 10/27/19 10/28/19 23:09 23:09 12:14 WBC 7.5 RBC 4.92 Hgb 13.1 Hct 39.5 MCV 80 L MCH 27 L MCHC 33 RDW 15.7 H Plt Count 247 Lymph % (Auto) 42.7 H [place] % (Auto) 8.7 H Eos % (Auto) 3.5 Baso % (Auto) 1.3 Lymph # 3.2 [place] # 0.7 Eos # 0.3 Baso # 0.1 Seg Neutrophils % 43.8 Seg Neutrophils # 3.3 Sodium 139 Potassium 4.7 Chloride 102.2 Carbon Dioxide 18 L Anion Gap 24 BUN 14 Creatinine 1.7 H Estimated GFR 48 BUN/Creatinine Ratio 8 Glucose 187 H Calcium 9.4 Magnesium 2.20 Total Creatine Kinase 1099 H Urine Color Urine Turbidity Urine pH Ur Specific [place] Urine Protein Urine Glucose (UA) Urine Ketones Urine Blood Urine Nitrite Urine Bilirubin Urine Urobilinogen Ur Leukocyte Esterase Urine WBC (Auto) Urine RBC (Auto) U Epithel Cells (Auto) Urine Mucus Urine Eosinophils Urine Creatinine Urine Sodium 10/29/19 10/29/19 10/29/19 05:09 09:12 09:12 WBC RBC Hgb Hct MCV MCH MCHC RDW Plt Count Lymph % (Auto) [place] % (Auto) Eos % (Auto) Baso % (Auto) Lymph # [place] # Eos # Baso # Seg Neutrophils % Seg Neutrophils # Sodium 140 Potassium 4.8 Chloride 108.3 H Carbon Dioxide 23 Anion Gap 14 BUN 12 Creatinine 1.2 Estimated GFR > 60 BUN/Creatinine Ratio 10 Glucose 92 Calcium 9.0 Magnesium Total Creatine Kinase 1105 H Urine Color Yellow Urine Turbidity Clear Urine pH 5.0 Ur Specific [place] 1.015 Urine Protein <15 mg/dl Urine Glucose (UA) Neg Urine Ketones Neg Urine Blood Sm Urine Nitrite Neg Urine Bilirubin Neg Urine Urobilinogen < 2.0 Ur Leukocyte Esterase Neg Urine WBC (Auto) 2.0 Urine RBC (Auto) 3.0 U Epithel Cells (Auto) < 1.0 Urine Mucus Few Urine Eosinophils Urine Creatinine 193.5 H Urine Sodium 116 10/29/19 09:12 WBC RBC Hgb Hct MCV MCH MCHC RDW Plt Count Lymph % (Auto) [place] % (Auto) Eos % (Auto) Baso % (Auto) Lymph # [place] # Eos # Baso # Seg Neutrophils % Seg Neutrophils # Sodium Potassium Chloride Carbon Dioxide Anion Gap BUN Creatinine Estimated GFR BUN/Creatinine Ratio Glucose Calcium Magnesium Total Creatine Kinase Urine Color Urine Turbidity Urine pH Ur Specific [place] Urine Protein Urine Glucose (UA) Urine Ketones Urine Blood Urine Nitrite Urine Bilirubin Urine Urobilinogen Ur Leukocyte Esterase Urine WBC (Auto) Urine RBC (Auto) U Epithel Cells (Auto) Urine Mucus Urine Eosinophils None seen Urine Creatinine Urine Sodium - Constitutional General appearance: other (alert ) Results - Laboratory Findings CBC and BMP: 10/27/19 23:09 10/29/19 05:09 Abnormal Lab Findings: Abnormal Labs 10/27/19 10/27/19 10/28/19 23:09 23:09 12:14 MCV 80 L MCH 27 L RDW 15.7 H Lymph % (Auto) 42.7 H [place] % (Auto) 8.7 H Chloride Carbon Dioxide 18 L Creatinine 1.7 H Glucose 187 H Total Creatine Kinase 1099 H Urine Creatinine 10/29/19 10/29/19 05:09 09:12 MCV MCH RDW Lymph % (Auto) [place] % (Auto) Chloride 108.3 H Carbon Dioxide Creatinine Glucose Total Creatine Kinase 1105 H Urine Creatinine 193.5 H Assessment and Plan rule out left cortical cva . may have secondary seizure. h/o atrial fib, heart failure, hypertension, hypothyroidism, stroke echo- severe left ventricular dilatation.. ef- 15-20%. depending on the stroke type, and extend,anticoagulation should be concerned. cont. asa and statin. continue keppra 750 mg i/v bid. thanks .
[2019-10-29] MEDS ORDERED: ENOXAPARIN 40 MG/0.4 ML INJ SUB-Q SCH (22:00)
[2019-10-29] MEDS: PRAVASTATIN 40 MG TAB PO SCH (22:12)
[2019-10-29] MEDS: carvediloL 6.25 MG TAB PO SCH (22:12)
[2019-10-30 04:54] LABS: BUN/Creatinine Ratio 11; Blood Urea Nitrogen 13 mg/dL (9-20); Calcium 8.6 mg/dL (8.4-10.2); Hemolysis Index 31
--- NOTE | 2019-10-30 08:45 | XRay Report ---
LEFT FOREARM ONE VIEW. INDICATION / CLINICAL INFORMATION: MRI clearance COMPARISON: None available. FINDINGS: BONES / JOINT(S): No acute fracture or subluxation. Previous placement of 2 screws at the radial aspe ct of the carpus. Chronic widening of the scapholunate space typical of tearing of the scapholunate l igament. 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 SOFT TISSUES: IV noted ADDITIONAL FINDINGS: None. Signer Name: Hayden Alcazar MD Signed: 10/30/2019 8:41 AM Workstation Name: [id number]
[2019-10-30] MEDS ORDERED: SPIRONOLACTONE 25 MG TAB PO SCH (10:00)
[2019-10-30] MEDS: ASPIRIN 325 MG TAB PO SCH (10:11)
[2019-10-30] MEDS: carvediloL 6.25 MG TAB PO SCH (10:11)
[2019-10-30] MEDS: levETIRAcetam 500 MG/5 ML ORAL LIQD PO SCH (10:11)
--- NOTE | 2019-10-30 12:17 | Progress Note ---
Assessment and Plan Impression: * Nonoliguric LUANNE secondary prerenal azotemia vs ATN related to rhabdo vs NSAID induced nephopathy * Seizure disorder * CVA with expressive aphasia * Hypertension * Atrial fibrillation * Metabolic acidosis Plan: * No acute indication for renal replacement therapy at this time * Creatinine has improved to 1.2, lytes and urine stable * Reviewed urine studies * Continue gentle IVF prn, can stop if able to tolerate PO intake * Continue to hold ACEi for now * Reviewed renal ultrasound to r/o obstructive uropathy * Avoid potential nephrotoxins * Dose medications for renal function * Neurology input reviewed * Will discuss plan of care with patient's via phone prn Subjective Date of service: 10/30/19 Interval history: No major issues noted, patient in good spirits this AM Objective - Exam Narrative Exam: General appearance: well-developed, well-nourished EENT: ATNC Respiratory: Clear to Ascultation Heart: regular, S1S2 Gastrointestinal: Present: normal. Absent: tenderness, distended Integumentary: no rash, warm and dry Neurologic: expressive aphasia noted- answers "[place]" to majority of questions, moves spontaneously, comprehends basic commands Psychiatric: mood/affect appropriate, cooperative - Vital Signs Vital signs: Vital Signs - 12hr 10/30/19 10/30/19 10/30/19 02:00 07:34 07:35 Temperature 97.7 F Pulse Rate 60 68 Pulse Rate [ 87 Apical] Respiratory 18 19 Rate Blood Pressure 136/80 O2 Sat by Pulse 99 99 Oximetry 10/30/19 10/30/19 10:11 11:52 Temperature Pulse Rate 80 58 L Pulse Rate [ Apical] Respiratory Rate Blood Pressure 128/88 129/78 O2 Sat by Pulse 99 Oximetry - Lab 10/27/19 23:09 10/30/19 04:18 Most recent lab results Calcium 8.6 mg/dL (8.4-10.2) 10/30/19 04:18 Magnesium 2.20 mg/dL (1.7-2.3) 10/27/19 23:09 Urine Creatinine 193.5 mg/dL (0.1-20.0) H 10/29/19 09:12 Urine Sodium 116 mmol/L 10/29/19 09:12 Medications & Allergies - Medications Allergies/Adverse Reactions: Allergies codeine Allergy (Verified 03/22/13 12:59) Rash Penicillins Allergy (Verified 03/22/13 12:59) Rash Home Medications: Home Medications Medication Instructions Recorded Confirmed Last Taken Type Aspirin [Ecotrin] 325 tab PO DAILY 03/22/13 10/30/19 01/03/19 History 1 tab carvediloL [Coreg] 6.25 tab PO BID 03/22/13 10/30/19 01/03/19 History 1 tab lisinopriL [Zestril TAB] 1 tab PO QAM 03/22/13 10/30/19 01/03/19 History 1 tab AtorvaSTATin [Lipitor] 40 mg PO HS 10/30/19 10/30/19 Unknown History Bimatoprost [Lumigan 0.01%] 1 drops OTIC HS 10/30/19 10/30/19 Unknown History Furosemide [Lasix] 20 mg PO QDAY 10/30/19 10/30/19 Unknown History Spironolactone [Aldactone] 25 mg PO QDAY 10/30/19 10/30/19 Unknown History Tamsulosin [Flomax] 0.4 mg PO DAILY 10/30/19 10/30/19 Unknown History levETIRAcetam [Keppra TAB] 1,000 mg PO BID 10/30/19 10/30/19 Unknown History Active Medications: Generic Name Dose Route Start Last Admin Trade Name Freq PRN Reason Stop Dose Admin Aspirin 325 mg 10/28/19 10:00 10/30/19 10:11 Aspirin PO 325 mg QDAY CARITO Administration Carvedilol 6.25 mg 10/29/19 22:00 10/30/19 10:11 Coreg PO 6.25 mg BID CARITO Administration Enoxaparin Sodium 40 mg 10/29/19 22:00 10/29/19 22:12 Enoxaparin SUB-Q 40 mg QDAY@2200 CARITO Administration Sodium Chloride 1,000 mls @ 75 mls/hr 10/28/19 08:15 10/29/19 22:10 Nacl 0.9% 1000 Ml IV 75 mls/hr DIRECT CARITO Administration Levetiracetam 1,000 mg 10/29/19 22:00 10/30/19 10:11 Keppra PO 1,000 mg BID CARITO Administration Lorazepam 1 mg 10/28/19 06:18 Ativan IV Q4H PRN Seizures Ondansetron HCl 4 mg 10/28/19 06:19 Zofran IV Q8H PRN Nausea And Vomiting Pravastatin Sodium 40 mg 10/28/19 22:00 10/29/19 22:12 Pravachol PO 40 mg QHS CARITO Administration Spironolactone 25 mg 10/30/19 10:00 10/30/19 10:11 Aldactone PO 25 mg QDAY CARITO Administration
[2019-10-30] MEDS ORDERED: LISINOPRIL 5 MG TAB PO SCH (13:00)
--- NOTE | 2019-10-30 13:02 | Discharge Summary ---
Providers - Providers Date of Admission: 10/28/19 04:55 Date of discharge: 10/30/19 Attending physician: LASHAY MARIANO 10/28/19 06:17 Speech Therapy Evaluation and Treat [CONS] Routine Reason For Exam: CVA 10/28/19 07:59 Consult to Physician [CONS] Routine Comment: Consulting Provider: CELESTINA PARSONS Physician Instructions: Reason For Exam: CVA 10/28/19 08:02 Consult to Physician [CONS] Routine Comment: Consulting Provider: ELISE PARSONS Physician Instructions: Reason For Exam: LUANNE 10/30/19 12:56 Occupational Therapy Evaluate and Treat [CONS] Routine Comment: Reason For Exam: generalized weakness Physical Therapy Evaluation and Treat [CONS] Routine Comment: Reason For Exam: Difficulty in ambulation 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 Carotid Doppler no significant stenosis Renal ultrasound no abnormalities. Hospital course: Patient 68-year-old presented with a tonic-clonic seizure. Patient was found to have a subacute CVA on initial work-up also acute kidney injury and hypertension. Patient did not have any weakness did not have any further seizures after starting on Keppra. Patient can perform all ADLs without any significant problems. Balance is stable. Patient's creatinine has returned to normal after just 1 day of IV fluids. MRI obtained to rule out any acute CVA. And to let us know whether or not we should extend his anticoagulation to include Plavix. This is not been the case upon this work-up. - Discharge Diagnoses (1) LUANNE (acute kidney injury) Status: Acute Comment: Acute kidney injury has resolved. Creatinine went from 1.7-1.2 in 1 day. Renal ultrasound no abnormalities. Most likely all secondary to prerenal azotemia from having a seizure and increased creatinine. Patient was on NSAIDs we will discontinue this. I think it is safe to start patient on ALICIA inhibitor at low doses. Current benefits with congestive heart failure outweigh risk of being dehydrated at this time. Will restart follow-up with primary care in 5 to 7 days and repeat labs. (2) CVA (cerebral vascular accident) Status: Acute Comment: Patient with subacute CVA. Will discharge on aspirin antiplatelet antilipid therapy. Unlikely will need Plavix at this time. Given MRI findings. (3) Chronic systolic heart failure Status: Acute Comment: Chronic systolic heart failure placed on diuretics beta-blockers low-dose ALICIA inhibitors as blood pressure tolerates at this time. Lisinopril 2.5 milligrams daily. (4) Hypertension Status: Acute Comment: Patient has optimal control with current beta-willis and ALICIA inhibitor. (5) Seizure Status: Acute Comment: Patient seizure disorder well controlled with Keppra will continue Keppra p.o. twice daily. Will discuss with family Marge about the plan. Core Measure Documentation - Palliative Care Palliative Care/ Comfort Measures: Not Applicable - Core Measures Any of the following diagnoses?: heart failure - Heart Failure Discharge Requirements ALICIA/ARB for LVSD if EF <40%: Yes Beta willis at discharge: Yes Exam - Constitutional Vitals: Temp Pulse Resp BP Pulse Ox 97.7 F 58 L 19 129/78 99 10/30/19 07:34 10/30/19 11:52 10/30/19 07:35 10/30/19 11:52 10/30/19 11:52 General appearance: Present: no acute distress, well-nourished - EENT Eyes: Present: PERRL ENT: hearing intact, clear oral mucosa - Neck Neck: Present: supple, normal ROM - Respiratory Respiratory effort: normal Respiratory: bilateral: CTA - Cardiovascular Heart Sounds: Present: S1 & S2. Absent: rub, click - Extremities Extremities: pulses symmetrical, No edema Peripheral Pulses: within normal limits - Abdominal General gastrointestinal: Present: soft, non-tender, non-distended, normal bowel sounds Male genitourinary: Present: normal - Integumentary Integumentary: Present: clear, warm, dry - Musculoskeletal Musculoskeletal: gait normal, strength equal bilaterally - Psychiatric Psychiatric: appropriate mood/affect, intact judgment & insight - Neurologic Neurologic: CNII-XII intact, moves all extremities Plan Activity: no restrictions, fall precautions Weight Bearing Status: Full Weight Bearing Diet: low cholesterol Special Instructions: restrict fluid intake to (2.5) Assessment: Evaluate with neurology as outpatient need for possible further anticoagulation with Eliquis. There is some question whether patient has had this before bleeding problem. Follow up with: PRIMARY CARE, [Primary Care Provider] - 3-5 Days Prescriptions: Spironolactone [Aldactone] 25 mg PO QDAY #30 tablet Aspirin 325 mg PO QDAY #30 tablet carvediloL [Coreg] 6.25 mg PO BID #60 tablet levETIRAcetam [Keppra] 1,000 mg PO BID #60 oral.liqd Pravastatin [Pravachol] 40 mg PO QHS #30 tablet lisinopriL [Zestril TAB] 2.5 mg PO QDAY #30 tablet
[2019-10-30 13:07] VITALS: BP 127/75
--- NOTE | 2019-10-30 17:03 | Progress Note ---
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 the seizure was secondary to this old stroke. no acute stroke seen. h/o atrial fib, heart failure, hypertension, hypothyroidism, stroke echo- severe left ventricular dilatation.. ef- 15-20%. cont. asa and statin. continue keppra 750 mg po bid. the anticoagulation decision would be as per cardiology. no acute stroke seen on this admission. i would recommend starting anticoagulation. would prefer Eliquis, if not contraindicated. if discharged home, follow neurology closely and cardiology closely. thanks . Subjective Interval history: This is the Tele Neurology consultation. patient is a 68 year old male presenting with history of seizure attack characterized by tonic /clonic movement and witnesed by the . there was no history of fever or chills, No history of chest pain or shortness of breath and no history of any antecedent mental change before the seizure attack. Past History Past Medical History: atrial fib, heart failure, hypertension, hypothyroidism, stroke Past Surgical History: Other (PROSTATE CANCER) Social history: no significant social history Family history: no significant family history Objective - Exam Narrative Exam: Neurology Examination: alert awake. impaired naming and repetition. follows commands occasionally. CN- eomi- possible right NLF delayed movement. M- no arm drift. Laboratory Results - last 72 hr 10/27/19 10/27/19 10/28/19 23:09 23:09 12:14 WBC 7.5 RBC 4.92 Hgb 13.1 Hct 39.5 MCV 80 L MCH 27 L MCHC 33 RDW 15.7 H Plt Count 247 Lymph % (Auto) 42.7 H [place] % (Auto) 8.7 H Eos % (Auto) 3.5 Baso % (Auto) 1.3 Lymph # 3.2 [place] # 0.7 Eos # 0.3 Baso # 0.1 Seg Neutrophils % 43.8 Seg Neutrophils # 3.3 Sodium 139 Potassium 4.7 Chloride 102.2 Carbon Dioxide 18 L Anion Gap 24 BUN 14 Creatinine 1.7 H Estimated GFR 48 BUN/Creatinine Ratio 8 Glucose 187 H Calcium 9.4 Magnesium 2.20 Total Creatine Kinase 1099 H Urine Color Urine Turbidity Urine pH Ur Specific [place] Urine Protein Urine Glucose (UA) Urine Ketones Urine Blood Urine Nitrite Urine Bilirubin Urine Urobilinogen Ur Leukocyte Esterase Urine WBC (Auto) Urine RBC (Auto) U Epithel Cells (Auto) Urine Mucus Urine Eosinophils Urine Creatinine Urine Sodium 10/29/19 10/29/19 10/29/19 05:09 09:12 09:12 WBC RBC Hgb Hct MCV MCH MCHC RDW Plt Count Lymph % (Auto) [place] % (Auto) Eos % (Auto) Baso % (Auto) Lymph # [place] # Eos # Baso # Seg Neutrophils % Seg Neutrophils # Sodium 140 Potassium 4.8 Chloride 108.3 H Carbon Dioxide 23 Anion Gap 14 BUN 12 Creatinine 1.2 Estimated GFR > 60 BUN/Creatinine Ratio 10 Glucose 92 Calcium 9.0 Magnesium Total Creatine Kinase 1105 H Urine Color Yellow Urine Turbidity Clear Urine pH 5.0 Ur Specific [place] 1.015 Urine Protein <15 mg/dl Urine Glucose (UA) Neg Urine Ketones Neg Urine Blood Sm Urine Nitrite Neg Urine Bilirubin Neg Urine Urobilinogen < 2.0 Ur Leukocyte Esterase Neg Urine WBC (Auto) 2.0 Urine RBC (Auto) 3.0 U Epithel Cells (Auto) < 1.0 Urine Mucus Few Urine Eosinophils Urine Creatinine 193.5 H Urine Sodium 116 10/29/19 09:12 WBC RBC Hgb Hct MCV MCH MCHC RDW Plt Count Lymph % (Auto) [place] % (Auto) Eos % (Auto) Baso % (Auto) Lymph # [place] # Eos # Baso # Seg Neutrophils % Seg Neutrophils # Sodium Potassium Chloride Carbon Dioxide Anion Gap BUN Creatinine Estimated GFR BUN/Creatinine Ratio Glucose Calcium Magnesium Total Creatine Kinase Urine Color Urine Turbidity Urine pH Ur Specific [place] Urine Protein Urine Glucose (UA) Urine Ketones Urine Blood Urine Nitrite Urine Bilirubin Urine Urobilinogen Ur Leukocyte Esterase Urine WBC (Auto) Urine RBC (Auto) U Epithel Cells (Auto) Urine Mucus Urine Eosinophils None seen Urine Creatinine Urine Sodium - Vital Sign Vital Signs - 12hr 10/30/19 10/30/19 10/30/19 07:34 07:35 10:00 Temperature 97.7 F Pulse Rate 68 65 Pulse Rate [ 87 Apical] Respiratory 18 19 Rate Blood Pressure 136/80 O2 Sat by Pulse 99 99 Oximetry 10/30/19 10/30/19 10/30/19 10:11 11:52 13:06 Temperature Pulse Rate 80 58 L 61 Pulse Rate [ Apical] Respiratory Rate Blood Pressure 128/88 129/78 127/75 O2 Sat by Pulse 99 Oximetry - Laboratory Findings CBC and BMP: 10/27/19 23:09 10/30/19 04:18 Abnormal Lab Findings: Abnormal Labs 10/27/19 10/27/19 10/28/19 23:09 23:09 12:14 MCV 80 L MCH 27 L RDW 15.7 H Lymph % (Auto) 42.7 H [place] % (Auto) 8.7 H Chlor[place] Carbon Dioxide 18 L Creatinine 1.7 H Glucose 187 H Total Creatine Kinase 1099 H Urine Creatinine 10/29/19 10/29/19 10/30/19 05:09 09:12 04:18 MCV MCH RDW Lymph % (Auto) [place] % (Auto) Chloride 108.3 H Carbon Dioxide 21 L Creatinine Glucose Total Creatine Kinase 1105 H Urine Creatinine 193.5 H
--- NOTE | 2019-10-31 09:29 | Magnetic Resonance Report ---
MR brain wo con INDICATION / CLINICAL INFORMATION: Stroke. TECHNIQUE: Multiplanar, multisequence MR images of the brain were obtained. COMPARISON: None available. FINDINGS: INTRACRANIAL: Extensive encephalomalacia in the left frontal, left parietal, and left lateral tempora l lobe. Associated cortical laminar necrosis is present. No acute hemorrhage. No restricted diffusion to suggest acute infarction. Confluent periventricular and centrum semiovale T2 white matter hyperin tensities most consistent with sequela of chronic microvascular disease. No hydrocephalus. No extra-a xial collection. No mass. No herniation. Major intracranial vascular flow voids are preserved. ORBITS: No significant abnormality of visualized orbits. SINUSES / MASTOIDS: No significant abnormality of visualized sinuses and mastoid air cells. ADDITIONAL FINDINGS: None. IMPRESSION: 1. No acute or subacute infarction. 2. Extensive encephalomalacia in the left MCA territory from remote infarction. Signer Name: Trip Camacho MD Signed: 10/30/2019 9:43 AM Workstation Name: [id number]
== END 2019-10-30 18:26 | disposition home or self-care (01) ==
LOC: ED 22:50 → INTOOBSV 10-28 04:55 → 4A 10-28 04:55
PROVIDERS: ADMIT Internal Medicine; ATTEND Internal Medicine
DX: N17.9 Acute kidney failure, unspecified (principal); G40.909 Epilepsy, unspecified, not intractable, without status epilepticus; I63.9 Cerebral infarction, unspecified; I11.0 Hypertensive heart disease with heart failure; I50.22 Chronic systolic (congestive) heart failure; I48.91 Unspecified atrial fibrillation; E03.9 Hypothyroidism, unspecified; E87.2 Acidosis; J45.909 Unspecified asthma, uncomplicated; Z85.46 Personal history of malignant neoplasm of prostate; Z79.82 Long term (current) use of aspirin; Z79.899 Other long term (current) drug therapy; Z88.0 Allergy status to penicillin; Z88.5 Allergy status to narcotic agent
CPT/HCPCS: 36415; 70450; 70551; 73090; 76770; 80048; 81001; 82550; 82570; 82962; 83735; 84300; 85025; 89050; 92523; 92610; 93005; 93306; 93880; 96361; 96372; 96374; 99285; A9270; G0378; J1650; J1953; J7030